=== PATIENT | female | born 1955 | race African-American/Black ===

== ENCOUNTER 2024-06-13 14:41 | Outpatient (AMB) | payer MEDICARE, MEDICAID, SELFPAY ==
--- NOTE | 2024-06-13 14:52 | HO.NEPHOV ---
Vital Signs 06/13/24 14:56 Weight 179 lb BP 104/60 Blood Pressure Location Lt brachial Position Sitting Pulse 81 Pulse Source Pulse Oximeter Pulse Oximetry (%) 93 Oxygen Delivery Method Room Air Intake Visit Reasons: Continuing care-HTN / LVM Mini Baccarat Dealer Required: No Accompanied by: Other Relationship Allergies oxcarbazepine Allergy (Verified 06/13/24 14:58) Unknown paliperidone Allergy (Verified 06/13/24 14:58) Unknown tramadol Allergy (Verified 06/13/24 14:58) Unknown HPI Comments Details: I had the pleasure of seeing Marta in follow-up of her hypertension. Her blood sugars better. Her blood pressure has been well controlled. She is not taking his spironolactone. She is on Farxiga and lisinopril. She denies any chest pain, shortness of breath, proximal nocturnal dyspnea, orthopnea, urinary symptoms or pedal edema. She is not taking any nonsteroidal anti-inflammatories. [facility] Medical History (Updated 06/13/24 @ 15:07 by Meliton Beverly MD) Type 2 diabetes mellitus with diabetic nephropathy Hypertension Surgical History H/O section Family History Daughter Cancer Social History (Updated 06/13/24 @ 15:00 by Tammi Campbell MA) Alcohol intake: never Patient Tobacco Use Status: Never used Tobacco Use of substances other than those prescribed or required for medical reasons: No Review of Systems Const All systems reviewed & are unremarkable except as noted in HPI and below Physical Exam Vital Signs: Last Vital Signs Pulse 81 06/13/24 14:56 BP 104/60 06/13/24 14:56 Pulse Ox 93 06/13/24 14:56 Oxygen Delivery Method Room Air 06/13/24 14:56 Const General: comfortable and no acute distress Orientation/consciousness: patient oriented x3 HEENT Head: Yes normocephalic Mouth: Normal oral and palatal mucosa present Eyes EOM: EOMs intact bilaterally Neck Neck: Yes supple Resp Auscultation: clear to auscultation bilaterally Cardio Jugular venous distension: no JVD Rate: regular rate GI Palpation (GI): Soft to palpation Auscultation: normal bowel sounds General: Yes no CVA tenderness Back/Spine/Pelvis Back: no CVA tenderness Skin General skin exam: no rashes or lesions noted Neuro General: patient oriented x3 and moves all extremities Extrem General: Yes no pedal edema Results Reviewed Nephrology Results: No Data to Display Assessment & Plan Assessment & Plan (1) Type 2 diabetes mellitus with diabetic nephropathy: Code(s): E11.21 - Type 2 diabetes mellitus with diabetic nephropathy Category: Medical Qualifiers: Diabetes mellitus terminal press operator insulin use: without terminal press operator use Qualified Code(s): E11.21 - Type 2 diabetes mellitus with diabetic nephropathy (2) Hypertension: Code(s): I10 - Essential (primary) hypertension Category: Medical Qualifiers: Hypertension type: primary hypertension Qualified Code(s): I10 - Essential (primary) hypertension Plan Ms Cho has longstanding hypertension. Her blood pressure is currently well controlled on current medication regimen. She is on WILLEM-inhibitor and Farxiga. Her volume status quite optimal. She avoids nonsteroidal anti-inflammatories and maintain good hydration. She should be on a low-sodium diet. She would benefit from some weight loss. I did not make any medication changes today. All questions were answered. F/U given. Orders: Orders Calcium Today E11.21 - Type 2 diabetes mellitus with diabetic nephropathy, I10 - Essential (primary) hypertension Creatinine Today E11.21 - Type 2 diabetes mellitus with diabetic nephropathy, I10 - Essential (primary) hypertension Blood Urea Nitrogen Today E11.21 - Type 2 diabetes mellitus with diabetic nephropathy, I10 - Essential (primary) hypertension Electrolytes Today E11.21 - Type 2 diabetes mellitus with diabetic nephropathy, I10 - Essential (primary) hypertension Coding Level of Care Code Est Pt Level 4 (36294) Diagnoses Type 2 diabetes mellitus with diabetic nephropathy, without long-term current use of insulin E11.21 Diabetes mellitus nursing home insulin use: without terminal press operator use Primary hypertension I10 Hypertension type: primary hypertension
[2024-06-13 14:56] VITALS: BP 104/60; PULSE 81; O2SAT 93
== END 2024-06-13 15:28 | disposition home or self-care (01) ==
PROVIDERS: PCP Internal Medicine; Visit Provider Internal Medicine Nephrology
DX: E11.21 Type 2 diabetes mellitus with diabetic nephropathy (principal); I10 Essential (primary) hypertension
CPT/HCPCS: 99214

== ENCOUNTER → 2024-06-13 14:41 | Outpatient (BNVA) | payer MEDICARE, MEDICAID, SELFPAY | PROVIDERS: PCP Internal Medicine; Visit Provider Internal Medicine Nephrology ==

== ENCOUNTER 2024-06-13 15:18 | Outpatient (REF) | payer MEDICARE, MEDICAID, SELFPAY ==
[2024-06-13 17:48] LABS: MANUAL DIFF FLAG NO
[2024-06-13 18:05] LABS: Basophils Percent Auto 0.4 % (0-2); Eosinophils Absolute Auto 0.2 X10*3/uL (0.0-0.4); Eosinophils Percent Auto 2.2 % (0-4); Hematocrit 37.8 % (37.0-47.0); Hemoglobin 12.1 g/dl (12.0-16.0); Imm Gran Abs Auto 0.03 X10*3/uL (0.00-0.03); Imm Gran Pct Auto 0.4 % (0.0-0.4); Lymphocytes Absolute Auto 2.7 X10*3/uL (1.2-4.9); Lymphocytes Percent Auto 33.6 % (20-40); Mean Corpuscular Hemoglobin 28.1 pg (27.0-33.0); Mean Corpuscular Volume 87.7 fL (80.0-98.0); Mean Platelet Volume 13.2 fL (9.4-12.3); Monocytes Absolute Auto 0.7 X10*3/uL (0.1-1.2); Monocytes Percent Auto 8.9 % (2-11); Neutrophils Absolute Auto 4.4 x10*3/uL (2.0-8.3); Neutrophils Percent Auto 54.5 % (45-73); Platelet Count 182 X10*3/uL (160-400); Red Blood Count 4.31 X10*6/uL (4.20-5.50); Red Cell Distribution Width 14.7 % (11.0-16.0); White Blood Count 8.1 X10*3/uL (4.8-10.8)
[2024-06-13 18:23] LABS: Anion Gap 13 (12-20); Blood Urea Nitrogen 24 mg/dL (9-16); Calcium 9.6 mg/dL (8.4-10.2); Carbon Dioxide 26 mmol/L (22-29); Chloride 103 mmol/L (96-108); Estimated Glomerular Filt Rate 32; Iron 47 mcg/dL (30-160); Percent Iron Saturation 22 % (15-50); Potassium 4.1 mmol/L (3.3-5.1); Sodium 138 mmol/L (135-145); Total Iron Binding Capacity 209 mcg/dL (228-428); Unsaturated Iron Binding 162 ug/dL
[2024-06-13 18:30] LABS: Ferritin 267 ng/mL (10-250)
== END 2024-06-13 15:19 | disposition home or self-care (01) ==
LOC: HO.HKASLDS 15:18
PROVIDERS: Visit Provider Internal Medicine Nephrology
DX: E11.21 Type 2 diabetes mellitus with diabetic nephropathy (principal); I10 Essential (primary) hypertension
CPT/HCPCS: 36415; 80051; 82310; 82565; 82728; 83540; 84520; 85025; 99212

== ENCOUNTER 2024-12-21 14:59 | Outpatient (AMB) | payer MEDICARE, MEDICAID, SELFPAY ==
--- NOTE | 2024-12-21 14:57 | HO.NEPHOV ---
Vital Signs 12/21/24 14:58 Weight 179 lb Intake Visit Reasons: 6 mon follow up/ conf It Service Technician Required: No Accompanied by: Self / Same As Patient Allergies oxcarbazepine Allergy (Verified 12/21/24 14:58) Unknown paliperidone Allergy (Verified 12/21/24 14:58) Unknown tramadol Allergy (Verified 12/21/24 14:58) Unknown HPI Comments Details: I had the pleasure of seeing Marta by tele health in follow-up of her CKD and hypertension. Her blood sugars better. Her blood pressure has been well controlled. She is not taking his spironolactone. She is on Farxiga and lisinopril. She denies any chest pain, shortness of breath, proximal nocturnal dyspnea, orthopnea, urinary symptoms or pedal edema. She is not taking any nonsteroidal anti-inflammatories. [facility] Medical History (Updated 12/21/24 @ 15:13 by Meliton Beverly MD) Type 2 diabetes mellitus with diabetic nephropathy Hypertension Surgical History H/O section Family History Daughter Cancer Social History Alcohol intake: never Patient Tobacco Use Status: Never used Tobacco Review of Systems Const All systems reviewed & are unremarkable except as noted in HPI and below Telehealth Telehealth Telehealth Platform: Telephone Location of provider rendering services: practice address Location of patient: address on file Patient Identification confirmed using: Name, : Yes Telehealth method: voice only Patient verbally consented to treatment: Yes Patient verbally consented to billing insurance company: Yes Patient informed of any privacy concerns related to visit: No Minutes spent on Phone/Video with Pt.: 10 Assessment & Plan Assessment & Plan (1) Type 2 diabetes mellitus with diabetic nephropathy: Code(s): E11.21 - Type 2 diabetes mellitus with diabetic nephropathy Category: Medical Qualifiers: Diabetes mellitus fpc insulin use: without exterminator helper termite use Qualified Code(s): E11.21 - Type 2 diabetes mellitus with diabetic nephropathy (2) Hypertension: Code(s): I10 - Essential (primary) hypertension Category: Medical Qualifiers: Hypertension type: primary hypertension Qualified Code(s): I10 - Essential (primary) hypertension (3) CKD stage 3a, GFR 45-59 ml/min: Code(s): N18.31 - Chronic kidney disease, stage 3a Category: Medical (4) Hypercalcemia: Code(s): E83.52 - Hypercalcemia Category: Medical Plan Ms Cho has longstanding hypertension. Her blood pressure is currently well controlled on current medication regimen. She is on WILLEM-inhibitor and Farxiga. Her volume status quite optimal. She avoids nonsteroidal anti-inflammatories and maintain good hydration. She should be on a low-sodium diet. She would benefit from some weight loss. I asked her to hold her calcium tablets given her calcium has gone up to 10.9. I did not make any other medication changes today. All questions were answered. F/U given. Orders: Orders Calcium 6 Months E11.21 - Type 2 diabetes mellitus with diabetic nephropathy, E83.52 - Hypercalcemia, I10 - Essential (primary) hypertension, N18.31 - Chronic kidney disease, stage 3a Creatinine 6 Months E11.21 - Type 2 diabetes mellitus with diabetic nephropathy, E83.52 - Hypercalcemia, I10 - Essential (primary) hypertension, N18.31 - Chronic kidney disease, stage 3a Vitamin D 25-OH Total 6 Months E11.21 - Type 2 diabetes mellitus with diabetic nephropathy, E83.52 - Hypercalcemia, I10 - Essential (primary) hypertension, N18.31 - Chronic kidney disease, stage 3a Parathyroid Hormone Intact 6 Months E11.21 - Type 2 diabetes mellitus with diabetic nephropathy, E83.52 - Hypercalcemia, I10 - Essential (primary) hypertension, N18.31 - Chronic kidney disease, stage 3a Protein Creatinine Ratio, Ur 6 Months E11.21 - Type 2 diabetes mellitus with diabetic nephropathy, E83.52 - Hypercalcemia, I10 - Essential (primary) hypertension, N18.31 - Chronic kidney disease, stage 3a Electrolytes 6 Months E11.21 - Type 2 diabetes mellitus with diabetic nephropathy, E83.52 - Hypercalcemia, I10 - Essential (primary) hypertension, N18.31 - Chronic kidney disease, stage 3a Blood Urea Nitrogen 6 Months E11.21 - Type 2 diabetes mellitus with diabetic nephropathy, E83.52 - Hypercalcemia, I10 - Essential (primary) hypertension, N18.31 - Chronic kidney disease, stage 3a Vitamin D 1,25 dihydroxy 6 Months E11.21 - Type 2 diabetes mellitus with diabetic nephropathy, E83.52 - Hypercalcemia, I10 - Essential (primary) hypertension, N18.31 - Chronic kidney disease, stage 3a Immunofixation Pnl, Serum 6 Months E11.21 - Type 2 diabetes mellitus with diabetic nephropathy, E83.52 - Hypercalcemia, I10 - Essential (primary) hypertension, N18.31 - Chronic kidney disease, stage 3a Coding Level of Care Code Tele Est Pt Level 4 (13052) Diagnoses Type 2 diabetes mellitus with diabetic nephropathy, without long-term current use of insulin E11. Diabetes mellitus fpc insulin use: without fpc use Primary hypertension I10 Hypertension type: primary hypertension CKD stage 3a, GFR 45-59 ml/min N18.31 Hypercalcemia E83.52
--- OUTSIDE RECORDS SUMMARY | 2024-12-21 15:00 | XMS_ITS ---
Author Organization [facility] Address Unknown Allergies, Adverse Reactions, Alerts Substance Reaction Status Noted Date Resolved Date Trileptal active 08/05/2016 Tramadol active 08/05/2016 Invega active 08/05/2016 Problems Problem Status Start Date End Date HYPOXEMIA (Primary) (R09.02 - ICD-10-CM) ACTIVE 05/05/2016 REPEATED FALLS (R29.6 - ICD-10-CM) ACTIVE 2015 DEHYDRATION (E86.0 - ICD-10-CM) ACTIVE 6 HISTORY OF FALLING (Z91.81 - ICD-10-CM) ACTIVE 0 05/05/2016 MUSCLE WEAKNESS (GENERALIZED) (M62.81 - ICD-10-CM) ACT NGOZI 05/05/2016 DIFFICULTY IN WALKING, NOT E LSEWHERE CLASSIFIED (R26.2 - ICD-10-CM) ACTIVE 05/05/2016 OTHER FATIGUE (R53.83 - ICD-10-CM) ACTIVE 2015 DYSPHAGIA, ORAL PHASE (R13.11 - ICD-10-CM) ACTIVE 08/11/2016 COGNITIVE COMMUNICATION DEFICIT (R41.841 - ICD-10-CM) ACTIVE 07/14/2016 OTHER LACK OF COORDINATION (R27.8 - ICD-10-CM) ACTIVE 07/07/2016 ABNORMAL POSTURE (R29.3 - ICD-10-CM) ACTIVE 06/16 DYSPHAGIA, UNSPECIFIED (R13.10 - ICD-10-CM) ACTIVE 05/26/2016 ESSENTIAL (PRIMARY) HYPERTENSION (I10 - ICD-10-CM) ACT NGOZI 05/05/2016 SCHIZOPHRENIA, UNSPECIFIED (F20.9 - ICD-10-CM) ACTIVE 05/05/2016 TYPE 2 DIABETES MELLITUS WIT HOUT COMPLICATIONS (E11.9 - ICD-10-CM) ACTIVE 05/05/2016 OTHER SPECIFIED ABNORMAL FIN DINGS OF BLOOD CHEMISTRY (R79.89 - ICD-10-CM) ACTIVE 05/05/2016 HYPERLIPIDEMIA, UNSPECIFIED (E78.5 - ICD-10-CM) ACTIVE 05/05/2016 ANXIETY DISORDER, UNSPECIFIED (F41.9 - ICD-10-CM) ACTI VE 05/05/2016 OTHER MALAISE (R53.81 - ICD-10-CM) ACTIVE 2015 HEART FAILURE, UNSPECIFIED (I50.9 - ICD-10-CM) ACTIVE 05/05/2016 OBESITY, UNSPECIFIED (E66.9 - ICD-10-CM) ACTIVE 05/05/2016 MAJOR DEPRESSIVE DISORDER, R ECURRENT, UNSPECIFIED (F33.9 - ICD-10-CM) ACTIVE 05/05/2016 Encounters Encounter Performer Performer Role Encounter Diagnoses Location Date Discharge - Discharged / Transferred to SNF - [facility] 05/05/2016 02:24 pm EDT - 12/01/2016 03:11 pm EST Immunizations Vaccine Date Influenza 09/08/2016 12:00 am EDT Social History
--- OUTSIDE RECORDS SUMMARY | 2024-12-21 15:00 | XMS_ITS | Clinical Summary ---
Author Organization [facility] Address [address] [facility] [address] [place] [address] Phone Care Team Providers Care Tile Professional Name Role Phone Charu Holguin MD Primary Care Provider + Allergies Active Allergy Reactions Criticality Noted Date Comments Oxcarbazepine Other (see comments) 06/16/2021 Paliperidone Other (see comments) 06/16/2021 Tramadol Other (see comments) 06/16/2021 Medications acetaminophen (TYLENOL) 325 MG tablet Take 2 tablets by mouth every 4 (four) hours Active atorvastatin (LIPITOR) 10 MG tablet Take 1 tablet by mouth 1 (one) time each day Active citalopram (CeleXA) 40 MG tablet Take 1 tablet by mouth 1 (one) time each day Active docusate sodium (COLACE) 100 MG capsule Take 1 capsule by mouth 2 (two) times a day Active ferrous sulfate 325 (65 Fe) MG tablet Take 1 tablet by mouth 1 (one) time each day Active Insulin Lispro, 1 Unit Dial, 100 UNIT/ML solution pen-injector Inject 10 Units under the skin 3 (three) times a day Active Aspirin Low Dose 81 MG EC tablet Take 81 mg by mouth 1 (one) time each day 2 Active carvedilol (COREG) 12.5 MG tablet Take 12.5 mg by mouth in the morning and 12.5 mg in the evening. Take with meals. 2 Active Lantus SoloStar 100 UNIT/ML injection INJECT 17 UNITS SUBCUTANEOUSLY EVERY NIGHT AT BEDTIME 2 Active benztropine (COGENTIN) 0.5 MG tablet Take 0.5 mg by mouth in the morning and 0.5 mg in the evening. 2 Active risperiDONE (RisperDAL) 2 MG tablet Take 2 mg by mouth in the morning and 2 mg in the evening. 2 Active traZODone (DESYREL) 100 MG tablet Take 100 mg by mouth every night 2 Active furosemide (Lasix) 20 MG tablet Take 1 tablet (20 mg total) by mouth 1 (one) time each day 30 tablet 3 2 Active spironolactone (ALDACTONE) 25 MG tablet Take 25 mg by mouth 1 (one) time each day Active Farxiga 10 MG tablet Take 10 mg by mouth 1 (one) time each day 3 Active lisinopril 40 MG tablet Take 40 mg by mouth 1 (one) time each day 3 Active Calcium Carb-Cholecalc iferol 600-10 MG-MCG tablet 4 Active Active Problems Problem Noted Date Diagnosed Date Stage 3a chronic kidney disease 04/05/2024 Renal osteodystrophy 04/05/2024 Hypertension 01/27/2022 Type 2 diabetes mellitus with diabetic nephropat hy 07/29/2021 Essential hypertension 06/16/2021 Other fatigue 09/04/2016 07/22/2023 Cognitive communication deficit 07/14/2016 07/22/2023 Abnormal posture 07/07/2016 07/22/2023 Other lack of coordination 07/07/201607/22 Dysphagia 05/26/2016 07/22/2023 Anxiety disorder 05/05/2016 07/22/2023 Dehydration 05/05/2016 07/22/2023 Difficulty in walking 05/05/2016 07/22/2023 Generalized muscle weakness 05/05/2016/05/2023 Heart failure 05/05/2016 07/22/2023 History of falling 05/05/2016 07/22/2023 Hyperlipidemia 05/05/2016 07/22/2023 Hypoxemia 05/05/2016 07/22/2023 Obesity 05/05/2016 07/22/2023 Other malaise 05/05/2016 07/22/2023 Other specified abnormal finding of blood chemis try 05/05/2016 07/22/2023 Recurrent major depressive disorder 05/05/2016 07/22/2023 Repeated falls 05/05/2016 07/22/2023 Schizophrenia 05/05/2016 07/22/2023 Type 2 diabetes mellitus without complication 07/22/2023 Immunizations Name Administration Dates Next Due Influenza, Unspecified 09/08/2016 Family History Medical History Relation Comments Cancer Child Hypertension Mother Relation Status Comments Child Father Mother Social History Tobacco Use Types Packs/Day Years Used Date Smoking Tobacco: Never Smokeless Tobacco: Never Tobacco Cessation:Counseling Given: Not Answered Alcohol Use Standard Drinks/Week Comments No 0 (1 standard drink = 0.6 oz pur e alcohol) Comments Unknown Sex and Gender Information Value Date Recorded Sex Assigned at Not on file Legal Sex Female 4:57 PM EST Gender Identity Not on file Sexual Orientation Not on file Last Filed Vital Signs Vital Sign Reading Time Taken Comments Blood Pressure 122/62 04/05/2024 3:16 PM EDT Pulse 93 04/05/2024 3:16 PM EDT Temperature - - Respiratory Rate - - Oxygen Saturation 96% 04/05/2024 3:16 PM EDT Inhaled Oxygen Concentration - - Weight 82 kg (180 lb 12.8 oz) 04/05/2024 3:16 PM EDT Height 152.4 cm (5') 04/04/2020 12:00 PM EDT Body Mass Index 35.31 04/04/2020 12:00 PM EDT Plan of Treatment Health Maintenance Due Date Last Done Comments Breast Cancer Screening 1955 Pneumococcal Vaccine: 65+ Ye ars (1 of 2 - PCV) 1961 Colorectal Cancer Screening: Annual FOBT 2004 Colorectal Cancer Screening: Colonoscopy 2004 Colorectal Cancer Screening: Sigmoidoscopy 2004 Diabetes: Hemoglobin A1C 07/29/2021 Diabetes: Ophthalmology Exam 07/29/2021 Diabetes: Pedal Pulse Checked 07/29/2021 Diabetes: Sensory Foot Exam 07/29/2021 Diabetes: Visual Foot Exam 07/29/2021 Influenza Vaccine (#1) 2024 09/08/2016 Hepatitis B Vaccine Aged Out No longe r eligible based on patient's age to complete this topic Insurance [address] [address] MEDIC[place] [address] MEDICARE [place]ICA[place] Care Teams Tile Professional Relationship Specialty Start Date End Date Charu Holguin MD [facility] [place] [address] PCP - General Dental Morning Show Host 04/05/24
--- OUTSIDE RECORDS SUMMARY | 2024-12-21 15:00 | XMS_ITS | Encounter Summary ---
Author Organization [facility] Address [address] [place] [address] Phone Care Team Providers Care Jewel Bearing Facer Name Role Phone Charu Holguin MD Primary Care Provider + Encounter Details Date Type Department Care Team (Late st Contact Info) Description 02/09/2022 Telephone [facility] [address] [place] [address] Meliton Beverly MD Social History Tobacco Use Types Packs/Day Years Used Date Smoking Tobacco: Never Smokeless Tobacco: Never Alcohol Use Standard Drinks/Week Comments No 0 (1 standard drink = 0.6 oz pur e alcohol) Comments Unknown Sex and Gender Information Value Date Recorded Sex Assigned at Not on file Legal Sex Female 4:57 PM EST Gender Identity Not on file Sexual Orientation Not on file documented as of this encounter Miscellaneous Notes * Telephone Encounter - Isabelle Falcon - 02/09/2022 2:18 PM EDT Pts pharmacy called, the pt needs a new script sent over for furosemide 20 mg bid. Script was sent over as once a day by mistake. Thank you documented in this encounter Plan of Treatment Not on file documented as of this encounter Visit Diagnoses Not on filedocumented in this encounter Care Teams Jewel Bearing Facer Relationship Specialty Start Date End Date Charu Holguin MD [address] [place] [address] PCP - General Dental Sales Advisory Manager 04/05/24 documented as of this encounter
== END 2024-12-21 16:04 | disposition home or self-care (01) ==
PROVIDERS: PCP Internal Medicine; Visit Provider Internal Medicine Nephrology
DX: E11.21 Type 2 diabetes mellitus with diabetic nephropathy (principal); I10 Essential (primary) hypertension; N18.31 Chronic kidney disease, stage 3a; E83.52 Hypercalcemia
CPT/HCPCS: 99214

== ENCOUNTER → 2024-12-21 14:59 | Outpatient (BNVA) | payer MEDICARE, MEDICAID, SELFPAY | PROVIDERS: PCP Internal Medicine; Visit Provider Internal Medicine Nephrology ==

== ENCOUNTER 2025-07-24 15:55 | Outpatient (AMB) | payer MEDICARE, MEDICAID, SELFPAY ==
--- NOTE | 2025-07-24 15:59 | HO.NEPHOV ---
Vital Signs 07/24/25 16:03 Height 4 ft 11 in Weight 184 lb 2 oz BMI 37.2 BP 140/80 H Blood Pressure Location Lt brachial Position Sitting Pulse 75 Pulse Source Pulse Oximeter Pulse Oximetry (%) 95 Oxygen Delivery Method Room Air Intake Visit Reasons: CKD- pt ris Specialty Food Products Supervisor Required: No Accompanied by: Other Relationship Allergies oxcarbazepine Allergy (Verified 07/24/25 16:02) Unknown paliperidone Allergy (Verified 07/24/25 16:02) Unknown tramadol Allergy (Verified 07/24/25 16:02) Unknown HPI Comments Details: I had the pleasure of seeing Marta in follow-up of her CKD and hypertension. Her blood sugars better. Her blood pressure has been well controlled. She is not taking his spironolactone. She is on Farxiga and lisinopril. She denies any chest pain, shortness of breath, proximal nocturnal dyspnea, orthopnea, urinary symptoms or pedal edema. She is not taking any nonsteroidal anti-inflammatories. [facility] Medical History (Updated 12/21/24 @ 15:13 by Meliton Beverly MD) Type 2 diabetes mellitus with diabetic nephropathy Hypertension Surgical History H/O section Family History Daughter Cancer Social History Alcohol intake: never Patient Tobacco Use Status: Never used Tobacco Review of Systems Const All systems reviewed & are unremarkable except as noted in HPI and below Physical Exam Const General: comfortable and no acute distress Orientation/consciousness: patient oriented x3 HEENT Head: Yes normocephalic Mouth: Normal oral and palatal mucosa present Eyes EOM: EOMs intact bilaterally Neck Neck: Yes supple Resp Auscultation: clear to auscultation bilaterally Cardio Jugular venous distension: no JVD Rate: regular rate GI Palpation (GI): Soft to palpation Auscultation: normal bowel sounds General: Yes no CVA tenderness Back/Spine/Pelvis Back: no CVA tenderness Skin General skin exam: no rashes or lesions noted Neuro General: patient oriented x3 and moves all extremities Extrem General: Yes no pedal edema Assessment & Plan Assessment & Plan (1) Hypertension: Code(s): I10 - Essential (primary) hypertension Category: Medical Qualifiers: Hypertension type: primary hypertension Qualified Code(s): I10 - Essential (primary) hypertension (2) CKD stage 3a, GFR 45-59 ml/min: Code(s): N18.31 - Chronic kidney disease, stage 3a Category: Medical Plan Ms Cho has longstanding hypertension. Her blood pressure is currently well controlled on current medication regimen. She is on WILLEM-inhibitor and Farxiga. Her volume status quite optimal. She avoids nonsteroidal anti-inflammatories and maintain good hydration. She should be on a low-sodium diet. She would benefit from some weight loss. I did not make any other medication changes today. All questions were answered. F/U given Orders: Orders Calcium Today I10 - Essential (primary) hypertension, N18.31 - Chronic kidney disease, stage 3a Blood Urea Nitrogen Today I10 - Essential (primary) hypertension, N18.31 - Chronic kidney disease, stage 3a Creatinine Today I10 - Essential (primary) hypertension, N18.31 - Chronic kidney disease, stage 3a Electrolytes 6 Months I10 - Essential (primary) hypertension, N18.31 - Chronic kidney disease, stage 3a Calcium 6 Months I10 - Essential (primary) hypertension, N18.31 - Chronic kidney disease, stage 3a Blood Urea Nitrogen 6 Months I10 - Essential (primary) hypertension, N18.31 - Chronic kidney disease, stage 3a Creatinine 6 Months I10 - Essential (primary) hypertension, N18.31 - Chronic kidney disease, stage 3a Electrolytes Today I10 - Essential (primary) hypertension, N18.31 - Chronic kidney disease, stage 3a Coding Level of Care Code Est Pt Level 4 (52921) Diagnoses Primary hypertension I10 Hypertension type: primary hypertension CKD stage 3a, GFR 45-59 ml/min N18.31
[2025-07-24 16:03] VITALS: BP 140/80; PULSE 75; O2SAT 95; BMI 37.2
--- OUTSIDE RECORDS SUMMARY | 2025-07-24 18:02 | XMS_ITS | Encounter Summary ---
Author Organization [facility] Address [address] [place] [address] Phone Care Team Providers Care Ballast Regulator Operator Name Role Phone Charu Holguin MD Primary Care Provider + Encounter Details Date Type Department Care Team (Late st Contact Info) Description 02/09/2022 Telephone [facility] [address] [place] [address] Meliton Beverly MD Social History [...] on filedocumented in this encounter Care Teams Ballast Regulator Operator Relationship Specialty Start Date End Date Charu Holguin MD [address] [place] [address] PCP - General Dental Gaming Floor Supervisor 04/05/24 documented as of this encounter
--- OUTSIDE RECORDS SUMMARY | 2025-07-24 18:03 | XMS_ITS | Clinical Summary ---
Author Organization [facility] Address [address] [facility] [address] [place] [address] Phone Care Team Providers Care Warehouse Operator Name Role Phone Charu Holguin MD [...] 2 diabetes mellitus without complication 07/22/2023 Immunizations Immunization Administration Dates Next Due Influenza, Unspecified 09/08/2016 [...] Comments Breast Cancer Screening 1955 Pneumococcal Vaccine: 50+ Ye ars (1 of 2 - PCV) 1974 Colorectal Cancer Screening: Annual FOBT 2004 Colorectal Cancer Screening: Colonoscopy 2004 Colorectal Cancer Screening: Sigmoidoscopy 2004 Diabetes: Hemoglobin A1C 07/29/2021 Diabetes: Ophthalmology Exam 07/29/2021 Diabetes: Pedal Pulse Checked 07/29/2021 Diabetes: Sensory Foot Exam 07/29/2021 Diabetes: Visual Foot Exam 07/29/2021 Influenza Vaccine (#1) 2025 09/08/2016 Hepatitis B Vaccine Aged Out No longe r eligible based on patient's age to complete this topic Insurance [place] [address] Medicare Medicaid [place] [address] Medicare Medicaid [place] Care Teams Warehouse Operator Relationship Specialty Start Date End Date Charu Holguin MD [address] [place] [address] PCP - General Dental Hand Frame Surgical Elastic Knitter 04/05/24
== END 2025-07-24 16:15 | disposition home or self-care (01) ==
LOC: HO.HKAS 15:56
PROVIDERS: PCP Internal Medicine; Visit Provider Internal Medicine Nephrology
DX: I10 Essential (primary) hypertension (principal); N18.31 Chronic kidney disease, stage 3a
CPT/HCPCS: 99214

== ENCOUNTER 2025-07-24 15:55 | Outpatient (REF) | payer MEDICARE, MEDICAID, SELFPAY ==
[2025-07-24 19:14] LABS: Anion Gap 16 (12-20); Blood Urea Nitrogen 20 mg/dL (9-16); Calcium 10.3 mg/dL (8.4-10.2); Carbon Dioxide 27 mmol/L (22-29); Chloride 102 mmol/L (96-108); Estimated Glomerular Filt Rate 40; Potassium 4.7 mmol/L (3.3-5.1); Sodium 140 mmol/L (135-145)
== END 2025-07-24 15:56 | disposition home or self-care (01) ==
LOC: HO.HKASLDS 15:55
PROVIDERS: PCP Internal Medicine; Visit Provider Internal Medicine Nephrology
DX: I12.9 Hypertensive chronic kidney disease with stage 1 through stage 4 chronic kidney disease, or unspecified chronic kidney disease (principal); N18.31 Chronic kidney disease, stage 3a
CPT/HCPCS: 36415; 80051; 82310; 82565; 84520; 99212